=== PATIENT | male | born 2000 | race American Indian/Alaskan Native ===

== ENCOUNTER 2022-05-30 23:43 | Emergency (ER) | payer SELFPAY ==
--- NOTE | 2022-05-31 01:56 | XRay Report ---
XR ankle 3+V RT INDICATION / CLINICAL INFORMATION: INJURY COMPARISON: None available. AP, LATERAL, AND OBLIQUE VIEWS RIGHT ANKLE FINDINGS: No fracture, dislocation, or significant soft tissue abnormality. IMPRESSION: 1. No significant abnormality of the right ankle. Signer Name: Curtis Oseguera II, MD Signed: 05/31/2022 1:52 AM Workstation Name: [id number]
--- NOTE | 2022-05-31 06:04 | Emergency Department Report ---
ED Lower Extremity HPI - General Chief Complaint: Extremity Injury, Lower Stated Complaint: HURT ANKLE Source: patient Mode of arrival: Ambulatory Limitations: No Limitations - History of Present Illness Initial Comments: Patient is a 22-year-old male with no past medical history who presents to the ED with complaint of acute onset persistent right ankle pain and swelling after he twisted his right ankle while walking at work 12 hours ago. Patient states that the pain is especially worse with movement or any active range of motion of the right foot or right leg. Patient denies fall, nausea and vomiting, dizziness, syncope, traumatic injury, numbness and tingling or weakness of lower extremities bilaterally or back pain, head and neck injuries. MD Complaint: ankle injury (right ankle pain) -: hour(s) (12) Injury: Ankle: Right (pain) Type of Injury: inversion Place: work Severity: severe Severity scale (0 -10): 7 Improves With: nothing Worsens With: weight bearing, movement, palpation Context: walking (twisted right ankle) Associated Symptoms: swelling, able to partially bear weight - Related Data Previous Rx's Medication Instructions Recorded Last Taken Type Baclofen 20 mg PO Q12H PRN #20 tab 05/31/22 Unknown Rx Ibuprofen [Motrin] 600 mg PO Q8H PRN #30 tablet 05/31/22 Unknown Rx traMADoL [Ultram] 50 mg PO Q6HR PRN #10 tablet 05/31/22 Unknown Rx Allergies Allergy/AdvReac Type Severity Reaction Status Date / Time No Known Allergies Allergy Verified 05/31/22 01:26 ED Review of Systems ROS: Stated complaint: HURT ANKLE Other details as noted in HPI Constitutional: denies: chills, fever Eyes: denies: eye pain, eye discharge, vision change ENT: denies: ear pain, throat pain Respiratory: denies: cough, shortness of breath, wheezing Cardiovascular: denies: chest pain, palpitations Endocrine: no symptoms reported Gastrointestinal: denies: abdominal pain, nausea, diarrhea Genitourinary: denies: urgency, dysuria Musculoskeletal: arthralgia (right ankle pain). denies: back pain, joint swelling Skin: denies: rash, lesions Neurological: denies: headache, weakness, paresthesias Psychiatric: denies: anxiety, depression Hematological/Lymphatic: denies: easy bleeding, easy bruising ED Past Medical Hx - Medications Home Medications: Home Medications Medication Instructions Recorded Confirmed Last Taken Type Baclofen 20 mg PO Q12H PRN #20 tab 05/31/22 Unknown Rx Ibuprofen [Motrin] 600 mg PO Q8H PRN #30 tablet 05/31/22 Unknown Rx traMADoL [Ultram] 50 mg PO Q6HR PRN #10 tablet 05/31/22 Unknown Rx ED Physical Exam - General Limitations: No Limitations General appearance: alert, in no apparent distress - Head Head exam: Present: atraumatic, normocephalic, normal inspection - Eye Eye exam: Present: normal appearance, PERRL, EOMI Pupils: Present: normal accommodation - ENT ENT exam: Present: normal exam, normal orophraynx, mucous membranes moist, TM's normal bilaterally, normal external ear exam - Neck Neck exam: Present: normal inspection, full ROM. Absent: tenderness - Respiratory Respiratory exam: Present: normal lung sounds bilaterally. Absent: respiratory distress, wheezes, rales, rhonchi, stridor, chest wall tenderness, accessory muscle use, decreased breath sounds, prolonged expiratory, other - Cardiovascular Cardiovascular Exam: Present: regular rate, normal rhythm, normal heart sounds. Absent: systolic murmur, diastolic murmur, rubs, gallop - GI/Abdominal GI/Abdominal exam: Present: soft, normal bowel sounds. Absent: tenderness, guarding, rigid, hyperactive bowel sounds, hypoactive bowel sounds - Extremities Exam Extremities exam: Present: normal inspection, full ROM, tenderness (Right ankle tenderness with mild swelling), normal capillary refill, joint swelling (right ankle pain). Absent: pedal edema, calf tenderness - Back Exam Back exam: Present: normal inspection, full ROM. Absent: tenderness, CVA tenderness (R), CVA tenderness (L), muscle spasm, paraspinal tenderness, vertebral tenderness - Neurological Exam Neurological exam: Present: alert, oriented X3, CN II-XII intact, normal gait, reflexes normal - Psychiatric Psychiatric exam: Present: normal affect, normal mood - Skin Skin exam: Present: warm, dry, intact, normal color. Absent: rash ED Lower Extremity MDM - Radiology Data Radiology results: report reviewed, image reviewed [facility] [address] [place] [address] XRay Report Signed Patient: STEFAN ROSA MR#: [id number] 2 : 2000 Acct:[id number] Age/Sex: 22 / M ADM Date: 05/30/22 Loc: ED Attending Dr: Ordering Physician: ALEX PERLA MD Date of Service: 05/31/22 Procedure(s): XR ankle 3+V RT Accession Number(s): [id number] cc: ED MD MINDA Fluoro Time In Minutes: XR ankle 3+V RT INDICATION / CLINICAL INFORMATION: INJURY COMPARISON: None available. AP, LATERAL, AND OBLIQUE VIEWS RIGHT ANKLE FINDINGS: No fracture, dislocation, or significant soft tissue abnormality. IMPRESSION: 1. No significant abnormality of the right ankle. Signer Name: Danielle Armenta II, MD Signed: 05/31/2022 1:52 AM Workstation Name: [id number] Transcribed By: SOUTH Dictated By: DANIELLE ARMENTA II, MD Electronically Authenticated By: DANIELLE ARMENTA II, MD Signed Date/Time: 05/31/22151 DD/ 0 TD/TT: - Medical Decision Making This is a 22-year-old male with no past medical history who presents to the ED with complaint of acute onset persistent right ankle pain and swelling after he twisted his right ankle while walking at work 12 hours ago. Patient states that the pain is especially worse with movement or any active range of motion of the right foot or right leg. In the ED, patient is alert and oriented x3 and is not in any distress. Patient was treated for pain in the ED. Right ankle x-ray showed no acute fractures or subluxations. Patient was therefore discharged home on pain medications and advised to follow-up with his primary care physi geno in 7 to 10 days for reevaluation or return to the ED immediately if symptoms get worse. - Differential Diagnosis Ankle fracture; ankle sprain; muscle strain; Critical care attestation.: If time is entered above; I have spent that time in minutes in the direct care of this critically ill patient, excluding procedure time. ED Disposition Clinical Impression: Severe sprain of right ankle Qualifiers: Encounter type: initial encounter Qualified Code(s): S93.401A - Sprain of unspecified ligament of right ankle, initial encounter Muscle strain of ankle Qualifiers: Encounter type: initial encounter Laterality: right Qualified Code(s): S96.911A - Strain of unspecified muscle and tendon at ankle and foot level, right foot, initial encounter Disposition: HOME / SELF CARE / HOMELESS Is pt being admited?: No Does the pt Need Aspirin: No Condition: Stable Instructions: Ankle Sprain, [id number], Muscle Strain, [id number], Elastic Bandage and RICE Therapy Additional Instructions: The right ankle x-ray showed no acute fractures or subluxations. Therefore your injuries are likely musculoskeletal. Take medication with food, drink plenty of fluids, follow-up with your primary care physician in 7 to 10 days for reevaluation or return to the ED immediately if symptoms get worse. Prescriptions: Baclofen 20 mg PO Q12H PRN #20 tab PRN Reason: Muscle Spasm Ibuprofen [Motrin] 600 mg PO Q8H PRN #30 tablet PRN Reason: Pain traMADoL [Ultram] 50 mg PO Q6HR PRN #10 tablet PRN Reason: Pain Referrals: [facility] [Provider Group] - 7-10 days Forms: Work/School Release Form(ED) Time of Disposition: 06:05 Print Language: SPANISH
[2022-05-31 06:08] VITALS: BP 133/68
[2022-05-31] MEDS ORDERED: IBUPROFEN 600 MG TAB PO ONE (06:08)
[2022-05-31] MEDS ORDERED: ACETAMINOPHEN 500 MG TAB PO ONE (06:08)
== END 2022-05-31 06:59 | disposition home or self-care (01) ==
LOC: ED 23:43
DX: S93.401A Sprain of unspecified ligament of right ankle, initial encounter (principal); S96.911A Strain of unspecified muscle and tendon at ankle and foot level, right foot, initial encounter; X58.XXXA Exposure to other specified factors, initial encounter; Y93.89 Activity, other specified; Y92.89 Other specified places as the place of occurrence of the external cause; Y99.8 Other external cause status
CPT/HCPCS: 99283